=== PATIENT | male | born 1955 | race Caucasian/White ===

== ENCOUNTER 2016-09-12 10:02 | Inpatient (IN) ==
--- NOTE | 2016-09-12 10:34 | Emergency Department Note ---
Disposition Clinical Impression: Arterial insufficiency, Right foot pain Disposition: Admitted As Inpatient Condition: Good Referrals: NO,PCP [Non-Partnered Physician] - Forms: ED Satisfaction Letter Time of Disposition: 11:07 Extremity Problem HPI - General Chief complaint: ED Extremity Problem,Nontraumatic Stated complaint: Right Foot Numbness Time Seen by Provider: 09/12/16 10:12 Source: patient Mode of arrival: ambulatory Limitations: no limitations Nursing Notes Reviewed: Yes Vital Signs Reviewed: Yes - History of Present Illness HPI Narrative: Patient presents emergency room with decreased sensation and cold touch to the right lower extremity. Known vasculopath requiring an aortobifemoral bypass. Scheduled for this procedure but has been delayed secondary to poorly controlled diabetes. Patient is here today because of progression of symptoms and pain. He was seen by Dr. Diaz Pt Subjective Complaint: extremity pain Onset (ago): hour(s) Consistency: constant Injury Location: right, lower extremity Pain Scale: 0 Quality: burning Radiation: distal Improves with: nothing Worsens with: weight bearing, walking Associated symptoms: Reports: denies other symptoms Context: history of peripheral vascular disease - Related Data Allergies Allergy/AdvReac Type Severity Reaction Status Date / Time No Known Allergies Allergy Verified 06/03/16 10:49 All systems ED: reviewed and negative except as stated. Constitutional: Denies: fever, chills Cardiovascular: Denies: chest pain, palpitations, dyspnea on exertion, orthopnea Respiratory: Denies: dyspnea, wheezes Gastrointestinal: Denies: nausea, vomiting, diarrhea Musculoskeletal: Denies: back pain, neck pain Neurological: Denies: headache Past Medical History - Past Medical History Attestation: Yes The following information was validated with the patient. Source: patient Medical history: Reports: diabetes, myocardial infarction, peripheral artery disease Surgical history: Reports: LE stent(s), other (Cardiac stents) Psychiatric history: Reports: no psych history - Social History Smoking Status: Current every day smoker Smokeless Tobacco Status: No Alcohol use: Reports: none Drug use: Reports: none Physical Exam - General Limitations: no limitations General appearance: alert, in no apparent distress - Chest Chest inspection: Present: normal inspection, symmetric chest wall rise - Respiratory Respiratory exam: Present: normal lung sounds bilaterally - Cardiovascular Cardiovascular exam: Present: regular rate, normal rhythm, normal heart sounds - Extremities Exam Extremities exam: Present: normal inspection, full ROM, other (Patient has right lower extremity numbness and tingling sensation to the foot just distal to the ankle. This is a new symptom for him. There is mild discoloration and dusky appearance with cold skin to the touch in the foot and calf left extremity does not appear to be involved DP and PT pulses in the right foot are difficult to palpate). Absent: tenderness, normal capillary refill, pedal edema - Back Exam Back exam: Present: normal inspection - Neurological Exam Neurological exam: Present: alert, oriented X3 - Psychiatric Psychiatric exam: Present: other (Tearful) - Skin Skin exam: Present: warm, dry, intact, normal color, other (C extremity no) Course Course Narrative: Patient seen and examined the time of arrival here to the emergency room. See history of present illness. 60-year-old male presents with known vascular and arterial insufficiency in the lower extremities. He seen by was supposed to be doing an aortobifemoral bypass for this gentleman. They have been refraining from doing the procedure secondary to elevated glucose. Patient started to notice tingling in numbness in his right lower extremity today distal to the ankle as well as a dusky color and cold skin sensation the foot and calf. Patient has had multiple evaluations including vascular study. Patient denies any changes in symptoms or medical issues. Had labs drawn 3 days ago for evaluation and presurgical treatment. Patient had EKG completed here. Physical exam shows a slightly dusky right lower extremity was cool touch to the calf and foot. Sensation is diminished. Dorsalis pedis and posterior tibial pulses are difficult to help 8 on my examination of the right foot left foot does appear to have good pulses at this time. I reviewed the imaging studies as well as a vascular studies completed in the patient's previous evaluations in May. I placed a consult out to the operative physician and discuss the patient's medical presentation symptoms and intervention. Recommendation at this time is for him to be admitted to the hospitalist for medical management and then most likely surgical intervention. He did not request or require any further imaging studies are confirmatory testing at this point. I then placed a page out to the hospitalist and discussed and reviewed the patient's presentation with Dr. pinon. The presentation symptoms consultation with the vascular surgeon as well as the previous evaluation labs within the last 3 days. No recommendation for repeat labs at this time. Doppler study to attempt to be completed in emergency room for dopplerable pulses in the right lower extremity. Will also get an EKG. EKG collected shows normal sinus rhythm with no acute signs of ST segment elevation or pathology. Patient will be admitted to the hospitalist at this time for possible vascular surgery procedure. Vital Signs Temperature 97.7 F 09/12/16 10:07 Pulse Rate 91 09/12/16 10:07 Respiratory Rate 16 09/12/16 10:07 Blood Pressure 151/74 09/12/16 10:07 O2 Sat by Pulse Oximetry 100 09/12/16 10:07 Temperature 97.7 F 09/12/16 10:07 Pulse Rate 91 09/12/16 10:07 Respiratory Rate 16 09/12/16 10:07 Blood Pressure 151/74 09/12/16 10:07 O2 Sat by Pulse Oximetry 100 09/12/16 10:07 Oxygen Delivery Oxygen Delivery Room Air Extremity Problem, Nontraumati - MDM Narrative Medical decision making narrative: Vascular insufficiency, peripheral artery disease - Medical Records Medical records reviewed: Yes I reviewed the patient's medical records. - Lab Data Lab results reviewed: Yes I reviewed the patient's lab results. - Radiology Data Radiology results reviewed: Yes I reviewed the patient's radiology results. Previous imaging studies were reviewed
[2016-09-12] MEDS ORDERED: Ondansetron 4 MG/2 ML VIAL IVP PRN (10:40)
[2016-09-12] MEDS ORDERED: Naloxone 0.4 MG/ML INJ IVP PRN (10:40)
[2016-09-12] MEDS ORDERED: *HR* Morphine 2 MG/ML SYRINGE IVP PRN (10:40)
[2016-09-12] MEDS ORDERED: Acetaminophen 325 MG TABLET PO PRN (10:40)
[2016-09-12] MEDS ORDERED: D5% in Water 1,000 ML IVC PRN (11:05)
[2016-09-12] MEDS ORDERED: Dextrose Gel 15 GM PO PRN ×2 (11:05)
[2016-09-12] MEDS ORDERED: *HR* Dextrose 50 % in Water (Syg) 50 ML SYRINGE IVP PRN (11:05)
--- NOTE | 2016-09-12 11:47 | Internal Med History&Physical ---
Date of Encounter: 09/12/16 Time of Encounter: 11:35 Assessment and Plan (1) Peripheral vascular disease Current visit: Yes Status: Chronic Chronic progressive disease with history of one peripheral arterial stent Patient presents with right foot numbness - probable acute occlusion Vascular surgery consult - discussed with Dr. Diaz JOSUÉ and arterial Dopplers pending Patient will need aortobifemoral bypass Nothing by mouth, aspirin, statin Needs good blood glucose control (2) Arterial occlusion Current visit: Yes Status: Acute Suspected, plan as above (3) Type 2 diabetes mellitus Current visit: Yes Status: Acute Type 2, non-insulin dependent, hyperglycemia glucose checks, sliding scale insulin Continue Levemir Qualifiers: Diabetes mellitus complication status: with circulatory complication Diabetes mellitus complication detail: with peripheral angiopathy without gangrene Diabetes mellitus residential insulin use: without intermediate frame tender use Qualified Code(s): E11.51 - Type 2 diabetes mellitus with diabetic peripheral angiopathy without gangrene (4) Coronary artery disease Current visit: Yes Status: Chronic Status post stents - has not been on aspirin and statin Continue aspirin and statin Qualifiers: Coronary Disease-Associated Artery/Lesion type: [place] artery [place] vs. transplanted heart: [place] heart Associated angina: without angina Qualified Code(s): I25.10 - Atherosclerotic heart disease of [place] coronary artery without angina pectoris (5) Tobacco abuse Current visit: Yes Status: Chronic counselled about cessation, Nicotine patch (6) DVT prophylaxis Current visit: Yes Status: Acute continue heparin Internal Medicine - H&P: HPI Chief complaint: Right foot numbness Admitted From: Emergency Dept History of present illness: Mr. Leblanc is a 60 year old male with PMH of CAD, HTN, PVD and DM. He presents to the ED with complaints of right foot numbness. Patient states he has chronic right lower leg pain due to peripheral vascular disease. Today, all of a sudden his right foot is gone now. He states he cannot feel anything. Patient says he is not able to bear any weight on the right foot. No other aggravating or alleviating factors. He states he continues to smoke. He denies chest pain, denies shortness of breath denies palpitations, denies abdominal pain or fever or vomiting or diarrhea or cough. No other associated symptoms. Patient has history of cardiac stents and also wants stent in his right femoral. Patient has been scheduled for a aortobifemoral bypass, but this has been postponed or canceled in the past due to uncontrolled blood sugars. Patient was called by his vascular surgeon today that his surgery will be postponed. Patient told them about the right foot numbness, and he was then advised to go to the ED for evaluation. Patient states his son yesterday and his is scheduled tomorrow, and is not sure if he needs to stay here for surgery or attend the services. On examination patient is awake and alert. Not in any distress. Able to avoid all history. is at bedside. Patient is being admitted for severe peripheral vascular disease with probable acute occlusion. He will need evaluation for aortobifemoral surgery. He will be started on aspirin and statin and will be nothing by mouth. His blood glucose will need to be well controlled. He will be on insulin sliding scale and also on Levemir. Patient and his have been explained about his condition and plan of care. He understood and agreed. No unanswered questions. Discussed with Dr. Diaz, and he will evaluate patient. CODE STATUS full code. Past Med Surg Social Fam HX - Past Medical History Medical history: diabetes, myocardial infarction, peripheral artery disease Psychiatric history: no psych history - Past Surgical History Surgical History: LE stent(s), other (Cardiac stents) - Social History Smoking Status: Current every day smoker Smokeless Tobacco Status: No Alcohol use: none Drug use: none Internal Medicine - H&P: Meds Allergies No Known Allergies Allergy (Verified 06/03/16 10:49) All Systems PM: A 10-system review of systems was performed and is negative for pertinent findings except as documented above in the HPI. - Constitutional Constitutional: no fever(s) - EENT Eyes: no blurry vision - Cardiovascular Cardiovascular ROS IM: no chest pain, no dyspnea, no dyspnea on exertion, no lightheadedness, no orthopnea, no syncope - Respiratory Respiratory: no cough, no dyspnea, no dyspnea on exertion, no wheezing, no chest congestion - Gastrointestinal Gastrointestinal: no abdominal pain, no cramping, no diarrhea, no nausea, no vomiting - Genitourinary Genitourinary ROS male: no dysuria - Musculoskeletal Musculoskeletal ROS IM: numbness (right foot), tingling (right foot) - Neurological Neurological ROS: numbness, paresthesias, tingling, no abnormal gait, no abnormal speech, no dizziness, no focal weakness, no loss of vision - Constitutional Vitals: Temp Pulse Resp BP Pulse Ox 97.7 F 91 16 140/79 100 09/12/16 10:07 09/12/16 10:07 09/12/16 10:57 09/12/16 10:57 09/12/16 10:07 General appearance: Present: A&O X 3, no acute distress, answers questions appropriately - Head Head exam: Present: atraumatic - Eye Eye exam: Present: EOMI - Neck Neck exam general surgery: Present: supple - Respiratory Respiratory exam: Present: CTAB. Absent: rales, rhonchi, wheezes, tachypnea - Cardiovascular Cardiovascular exam: Present: RRR, +S1, +S2 - GI/Abdominal GI/Abdominal exam: Present: soft, tenderness. Absent: distended, firm, guarding , rigid - Extremities Exam Extremities exam: Present: radial pulses palpable and symetrical. Absent: cyanotic, pedal edema, tenderness Additional comments: Right foot distal pulses not palpable, medial and lateral aspects of foot are cold to touch No tenderness and capillary refill is absent Range of motion of the foot and toes normal - Neurological Exam Neurological exam: Present: alert, oriented X3, no focal deficits
[2016-09-12] MEDS: Nicotine 21 MG PATCH.TD24 TD SCH (12:45)
[2016-09-12] MEDS: Insulin LISPRO 300 UNITS/3 ML VIAL SQ SCH ×2 (12:46→21:17)
[2016-09-12] MEDS: 0.9 % Sodium Chloride 1,000 ML IVC SCH (12:46)
--- NOTE | 2016-09-12 15:01 | Vascular/Endovasc Consult Note ---
<Estefania Ackerman - Last Filed: 09/12/16 15:40> Date of Encounter: 09/12/16 Time of Encounter: 14:45 Assessment and Plan (1) Peripheral vascular disease Current Visit: Yes Status: Chronic JOSUÉ of bilateral lower extremities- RLE- 0.4, LLE- 0.1 Will need further investigation with CTA with runoff now Doppler pulses are present to bilateral DP/PT Recommend urgent surgical intervention with aortobifemoral bypass with Dr. Diaz Continue ASA - History of Present Illness Consult date: 09/12/16 Requesting physician: Royal Ghosh Consult reason: RLE severe stenosis with increase in numbness/tingling Chief complaint: RLE numbness/tingling History of present illness: Mr. Leblanc is a 60 year old male with a past medical history significant for peripheral vascular disease, diabetes mellitus, myocardial infarction 4. The patient has been seen and evaluated by Dr. Diaz as an outpatient for his peripheral vascular disease. His last JOSUÉ on his right lower extremity was 0.4 and left lower extremity was 0.8. The patient has completed his preoperative workup and was scheduled for an aortobifemoral bypass with Dr. Diaz. After receiving his laboratory studies his hemoglobin A1c was noted to be 12.7. The patient was called this morning and notified that he will need to have his surgery delayed until his blood sugars are under better control. During this conversation with office staff he reported having increasing numbness and tingling to his right lower extremity over the past 24 hours. He was advised to report to the emergency department for evaluation. Upon evaluation in the emergency department, they stated that his leg was cold and they were unable to obtain Doppler pulses. The patient was admitted to the hospitalist service and we have been asked to see and evaluate for evaluation. He states that he currently does not check his blood sugars and does not know what they run. Past Med Surg Social Fam HX - Past Medical History Source: patient, old records reviewed Medical history: diabetes, myocardial infarction (X4), peripheral artery disease Psychiatric history: no psych history - Past Surgical History Surgical History: angioplasty/stent (3 stents), LE stent(s) (RLE X 3 stents), vasectomy - Social History Smoking Status: Current every day smoker Smokeless Tobacco Status: No Alcohol use: none Drug use: none Current living situation: Home - Independent Activity Level: Independent ambulation - Family History Father Living Status: Hx Family Cardiac Disorders: Yes Mother Living Status: Still Living Hx Family Cardiac Disorders: Yes Medications and Allergies Allergies No Known Allergies Allergy (Verified 06/03/16 10:49) All Systems Review: A 10-system review of systems was performed and is negative for pertinent findings except as documented above in the HPI. Exam Vital Signs, Last 4 Hours Temp Pulse Resp BP Pulse Ox 09/12/16 12:04 98.2 F 71 14 134/75 95 General: Present: Conversant, No Apparent Distress, Well developed, Well nourished HEENT: Present: Atraumatic, Normocephaly, Trachea midline, Pupils equal Cardiac: Present: Reg Rate and Rhythm, Normal S1 and S2 Lungs: Present: Normal Breath Sounds, No Wheeze, Rales, Rhonchi Neuro: Present: Alert and responsive, No focal deficits noted Abdomen: Present: Soft, Non-tender Vascular: Present: Capillary refill delayed, Pulse, diminished (DP and PT present bilaterally with doppler), Other (LLE is warmer than RLE) Skin: Present: No rashes noted on visualized skin Consult Discharge Plan - Plan Referrals: Isa Hickman DO [Primary Care Provider] - - Attending Attestation I examined this patient and my medical decision-making was reviewed with the [employer] SAL[employer] ASSOCIATE/PA/Advanced Practice Nurse/Resident Physician. I agree with the documented findings, disposition and treatment plan as described except to the extent set forth below. <EmilyDavey T - Last Filed: 09/12/16 20:44> Date of Encounter: 09/12/16 - History of Present Illness History of present illness: Mr. Leblanc is a 60 year old male All Systems Review: A 10-system review of systems was performed and is negative for pertinent findings except as documented above in the HPI. Exam Vital Signs, Last 4 Hours Temp Pulse Resp BP Pulse Ox 09/12/16 18:43 98.4 F 82 16 128/54 96 - Attending Attestation The patient was seen and evaluated. His ankle-brachial index on the right has dropped from 0.4-0.1 in 2 months. His ankle-brachial index has dropped from 0.8 -0.4 on the left in 2 months. He now has numbness in his right foot and states that his right foot is cold. I fear that he has progressed his aorto iliac occlusive disease and has signs of aortic occlusion. We will repeat his aortogram with CTA runoff. I have recommended that we proceed with urgent aortobifemoral bypass despite his elevated hemoglobin A1c. Further delay may risk limb loss. I discussed the risks and benefits with the patient. We will proceed with aortobifemoral bypass tomorrow after the patient's glucose levels have been under control. Davey Diaz MD FACS
--- NOTE | 2016-09-12 15:55 | Electrocardiograph Report ---
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
[2016-09-12] MEDS: Aspirin 81 MG TAB.CHEW PO SCH (17:52)
[2016-09-12] MEDS: *HR* Heparin 5,000 UNIT/ML VIAL SQ SCH (17:52)
[2016-09-12] MEDS: Insulin DETEMIR 100 UNIT/ML X5UNITS SQ SCH ×2 (17:52→21:09)
[2016-09-12 19:37] LABS: BUN/Creatinine Ratio 17 (6-26); Blood Urea Nitrogen 13 mg/dL (8-26); Calcium 8.9 mg/dL (8.6-10.8); Carbon Dioxide 24 mEq/L (19-29); Chloride 105 mEq/L (98-109); Glucose 128 mg/dL (70-99); Osmolality,Calculated 288 (280-300); Potassium 3.8 mEq/L (3.5-4.5); Sodium 138 mEq/L (136-145); eGFR For African Americans > 60 (> 60); eGFR For Non-African Americans > 60 (> 60)
[2016-09-12] MEDS: Famotidine 20 MG TABLET PO SCH (21:09)
[2016-09-13] MEDS: Insulin LISPRO 300 UNITS/3 ML VIAL SQ SCH ×4 (01:16→22:36)
[2016-09-13] MEDS: *HR* Heparin 5,000 UNIT/ML VIAL SQ SCH ×2 (05:46→22:36)
--- NOTE | 2016-09-13 07:31 | Arterial Study Report ---
LE Arterial Physiologic Study Patient Name:Ruddy Leblanc Order Number:[id number] Procedure Date:09/12/2016 Date:1955ge:60 yrs Gender:Male Lt BP:122 / mmHg Rt.BP:123 / mmHgHeart Rate: Location:[facility] Room #: 3A43 Diving Judge:Piedad Brunner RDCS, RVT Referring MD:Davey Diaz MD sales operations assistant:DO Shira Velazquez MD:Kendrick Bowman MD Primary Indications:Peripheral Vascular Disease, Occlusion Risk Factors Yes/No Smoking Current Yes Hypercholesterolemia Yes Diabetes Yes Previous Vascular Surgery No Hypertension No Impressions: The right JOSUÉ and waveforms are consistent with severe disease. Right JOSUÉ 0.10. The left JOSUÉ and waveforms are consistent with severe disease. Left JOSUÉ 0.43. Recommendations: Further evaluation is recommended. After imaging the patient returned to their room. Test completed on 09/12/2016 at 3:49:48 pm. Critical findings reported to Dr. Diaz by phone at 3:49:59 pm on 09/12/2016 by Piedad Brunner RDCS, RVT. Findings LE Arterial Physiologic Exam: PVR: Right: The PVR waveforms are severely diminished in the right ankle. Left: The PVR waveforms are moderately diminished in the left ankle. Segmental Pressures Side Location Pressure Index Result Right Posterior Tibial 12 0.10 Severely Diminished Right Dorsalis Pedis 0 Left Posterior Tibial 48 0.39 Moderately Diminished Left Dorsalis Pedis 53 0.43 Moderately Diminished Ankle Brachial Index Right Systolic Diastolic JOSUÉ Brachial 123 0.10 Dorsalis Pedis 0 Posterior Tibial 12 0.10 Left Systolic Diastolic JOSUÉ Brachial 122 0.43 Dorsalis Pedis 53 0.43 Posterior Tibial 48 0.39 Updated by Kendrick Bowman MD on 09/13/2016 7:25:05 AM with Status of Final electronically signed on 09/13/2016 7:25:21 AM with status of Final
[2016-09-13] MEDS: Famotidine 20 MG TABLET PO SCH ×2 (08:02→22:36)
[2016-09-13] MEDS: Aspirin 81 MG TAB.CHEW PO SCH (08:02)
--- NOTE | 2016-09-13 08:37 | Internal Med Progress Note ---
Date of Encounter: 09/13/16 Time of Encounter: 08:33 - Assessment and plan (1) Arterial occlusion Current Visit: Yes Status: Acute Assessment and plan: Severe right common iliac artery occlusion Management per surgery, scheduled to have urgent surgery later today/ aortobifemoral bypass with Dr. Diaz Currently on aspirin and Lipitor Consider heparin drip if worse CT scan shows complete occlusion of the right common iliac artery near the junction with the common femoral artery, focal high-grade greater than 75% stenosis of the origin of the left external iliac artery. Bilateral below the knee vessels are grossly patent. (2) Arterial insufficiency Current Visit: Yes Status: Acute Assessment and plan: As stated above (3) Coronary artery disease Current Visit: Yes Status: Chronic Assessment and plan: Continue aspirin and Lipitor Qualifiers: Coronary Disease-Associated Artery/Lesion type: [place] artery [place] vs. transplanted heart: [place] heart Associated angina: without angina Qualified Code(s): I25.10 - Atherosclerotic heart disease of [place] coronary artery without angina pectoris (4) Peripheral vascular disease Current Visit: Yes Status: Chronic (5) Tobacco abuse Current Visit: Yes Status: Chronic Assessment and plan: Smoking cessation counseling given for 5 minutes. Continue nicotine patch (6) Type 2 diabetes mellitus Current Visit: Yes Status: Acute Assessment and plan: Continue insulin sliding scale Qualifiers: Diabetes mellitus complication status: with circulatory complication Diabetes mellitus complication detail: with peripheral angiopathy without gangrene Diabetes mellitus halfway insulin use: without intermodal truck driver use Qualified Code(s): E11.51 - Type 2 diabetes mellitus with diabetic peripheral angiopathy without gangrene - Subjective Interval history: Complaints of numbness of the right foot, denies any pain, no abdominal pain, no dysuria, no diarrhea, no chest pain or shortness of breath - Constitutional Vitals: Temp Pulse Resp BP Pulse Ox 97.7 F 70 16 109/64 98 09/13/16 07:04 09/13/16 07:04 09/13/16 07:04 09/13/16 07:04 09/13/16 07:04 General appearance: Present: A&O X 3, no acute distress, answers questions appropriately - Head Head exam: Present: atraumatic, normocephalic - Eye Eye exam: Present: PERRL, conjuntiva pink, sclera anicteric Pupils: Present: PERRL - Neck Neck exam general surgery: Present: supple, trachea midline. Absent: lymphadenopathy - Respiratory Respiratory exam: Present: CTAB. Absent: accessory muscle use, rales, rhonchi, wheezes - Cardiovascular Cardiovascular exam: Present: RRR, +S1, +S2. Absent: diastolic murmur, gallop, rubs, systolic murmur - GI/Abdominal GI/Abdominal exam: Present: normal bowel sounds, soft, no peritoneal signs. Absent: distended, tenderness - Extremities Exam Extremities exam: Present: warm, radial pulses palpable and symetrical. Absent : calf tenderness, cyanotic, pedal edema - Neurological Exam Neurological exam: Present: CN II-XII intact, oriented X3, no focal deficits. Absent: pronater drift, facial droop, speech deficit - Skin Skin exam: Present: dry. Absent: intact (Absent pulses worsened her right foot , extremity feels cold but he is able to move it, numbness below the right knee) Internal Medicine: Result - Labs CBC & Chem 7: 09/12/16 19:18 Labs: BMP 09/12/16 19:18 Sodium 138 Potassium 3.8 Chloride 105 Carbon Dioxide 24 BUN 13 Creatinine 0.77 Glucose 128 H Calcium 8.9 - Impressions Impressions Aorta w/Runoff CTA 09/12/16 15:54 IMPRESSION: 1. Redemonstration of complete occlusion of the right common iliac artery beginning at the origin with reconstitution of flow in the distal aspect of the right external iliac artery near the junction with the common femoral artery. Previously, there was reconstitution of flow within the proximal portion of the right external iliac artery. 2. Focal high-grade, greater than 75%, stenosis of the origin of the left external iliac artery, stable. 3. Bilateral [id number] runoff vessels are grossly patent, though the distal aspects of the right peroneal artery are not well visualized. D/ / 09/12/2016 22:20:22 Leandro Marmolejo MD / Trena Beltrán Interpreting Provider: Leandro Marmolejo MD Consult Discharge Plan - Plan Referrals: Isa Hickman DO [Primary Care Provider] -
[2016-09-13] MEDS: Insulin DETEMIR 100 UNIT/ML X5UNITS SQ SCH ×2 (08:40→22:36)
[2016-09-13] MEDS: Nicotine 21 MG PATCH.TD24 TD SCH (09:12)
[2016-09-13] MEDS: 0.9 % Sodium Chloride 1,000 ML IVC SCH ×2 (09:15→22:51)
--- NOTE | 2016-09-13 15:33 | Anesthesia Evaluation PreOp ---
Date of Encounter: 09/13/16 Time of Encounter: 15:30 - Past History Planned Operation: Ao bifem Cardiac History: NH (x4), Cardiac Stent (x3), Other (nuc stress 06/24: neg isch/ inf, ef 70. 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: Denies Any Significant HX Other Medical History: Diabetes Type II Anesthesia History: No Prior Anesthetic Complications, Past Anesthesia (vasect) Alcohol Use: none Drug use: none Medications and Allergies No Known Home Drugs 09/12/16 [History] Allergies No Known Allergies Allergy (Verified 06/03/16 10:49) - Meds/Allergy Pre-op Review Medications Reviewed: Yes Allergies Reviewed: Yes Beta Blockers on Current Med List: No Anesthesia Results - Labs 09/12/16 19:18 Laboratory Tests 09/09/16 09/09/16 09:38 09:38 Hgb 16.4 Hct 46.1 Plt Count 225 PT 10.2 INR 1.0 APTT 29.9 - Imaging EKG: report reviewed (sr) Anesthesia Exam Height: 1.6 Weight: 57 NPO (# of Hours): >8 - HEENT Pupil (Motor): Pupils equal, EOMI Mallampati: II Teeth: Poor dentition Oral Opening: Greater than 3 - 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
[2016-09-13] MEDS ORDERED: Dexamethasone 4 MG/ML VIAL ONE ×2 (16:05→19:54)
[2016-09-13] MEDS ORDERED: Ondansetron 4 MG/2 ML VIAL ONE ×2 (16:05→19:54)
[2016-09-13] MEDS ORDERED: *HR* FentaNYL (PF) 100 MCG/2 ML VIAL ONE ×3 (16:05→18:08)
[2016-09-13] MEDS ORDERED: Lidocaine -MPF 2% 2 ML VIAL ONE ×2 (16:05→16:14)
[2016-09-13] MEDS ORDERED: *HR* Rocuronium Bromide 50 MG/5 ML VIAL ONE (16:05)
[2016-09-13] MEDS ORDERED: Neostigmine Methylsulfate 3 MG/3 ML SYRINGE ONE ×2 (16:05→19:54)
[2016-09-13] MEDS ORDERED: *HR* Midazolam HCl 2 MG/2 ML VIAL ONE (16:06)
[2016-09-13] MEDS ORDERED: *HR* Propofol 200 MG/20 ML VIAL IVP ONE (16:07)
[2016-09-13] MEDS ORDERED: *HR* Succinylcholine 200 MG/10 ML VIAL IVP ONE (16:08)
[2016-09-13] MEDS ORDERED: Heparin 1,000 UNITS/500 mL NS 500 ML ONE ×2 (16:25→16:30)
[2016-09-13] MEDS ORDERED: *HR* Dextrose 50 % in Water (Syg) 50 ML SYRINGE ONE (16:47)
[2016-09-13] MEDS ORDERED: *HR* Promethazine 25 MG/ML VIAL IVP PRN (17:33)
[2016-09-13] MEDS ORDERED: Dexamethasone 4 MG/ML VIAL IVP ONE (17:33)
[2016-09-13] MEDS ORDERED: Ringers Solution, Lactated 1,000 ML IVC SCH (17:45)
[2016-09-13] MEDS ORDERED: *HR* HYDROmorphone 2 MG/ML SYRINGE ONE (18:12)
[2016-09-13] MEDS ORDERED: *HR* Heparin 5,000 UNIT/ML VIAL ONE ×2 (18:36→19:31)
[2016-09-13] MEDS ORDERED: Ondansetron 4 MG/2 ML VIAL IVP PRN ×2 (20:20→23:49)
[2016-09-13] MEDS ORDERED: *HR* HYDROmorphone (PF) 1 MG/ML SYRINGE IVP PRN (20:20)
[2016-09-13] MEDS ORDERED: Naloxone 0.4 MG/ML INJ IVP PRN ×3 (20:20→23:49)
[2016-09-13] MEDS ORDERED: 0.9 % Sodium Chloride 1,000 ML IVC SCH (20:30)
--- NOTE | 2016-09-13 20:34 | Operative Note ---
Date of procedure: 09/13/16 Pre-op diagnosis: Aortoiliac occlusive disease Post-op diagnosis: same Procedure: Aortobifemoral bypass Implants: 14 x 7 mm Hemashield bifurcated Anesthesia: NICHOLE Surgeon: Davey Diaz Estimated blood loss (cc): 250 Specimen: Aortic thromboendarterectomy Condition: stable Disposition: PACU Procedure in Detail: After informed consent the patient was taken to the major suite placed in supine position and given adequate general anesthetic. The abdomen and both groins were prepped and draped in sterile fashion utilizing Betadine solution standard draping techniques. Timeout was taken patient was identified. I started in the left groin with an oblique incision I dissected down the level of the common femoral artery there was a low bifurcation. I surrounded the superficial femoral profunda femoris and common femoral artery. I made an initial dissection under the inguinal ligament along the anterior surface of the external iliac artery. All vessels were surrounded with vessel loops the wound was packed with antibiotic containing solution. Attention was then turned to the right groin I then made an oblique incision and dissected down to the femoral artery. The common femoral artery was pulseless very strong the common femoral to branches of a bifurcated profunda and the superficial femoral artery with vessel loops. Again there was a low bifurcation. I made an initial dissection along the anterior border of the external iliac artery underneath the inguinal ligament. The right groin was packed in antibiotic solution. Attention was turned to the abdomen. The main midline incision. I placed a Bookwalter retractor as is my usual technique. I opened the retroperitoneum and exposed the aorta from the renal vein to the aortic bifurcation. I preserved the plexus of nerves at the aortic bifurcation. I circumferentially dissected the aorta between the renal vein and the inferior mesenteric artery. I then made a tunnel sweeping the ureters anteriorly off the external and common iliac arteries on both sides. I connected the tunnels and placed vessel loops. Once this was then patient was heparinized 5000 heparin. After 3 minutes I clamped the proximal aorta with a Satinsky clamp. I stapled the aorta just proximal to the inferior mesenteric artery. The aorta was divided at this level. The aorta was 80% full of thrombus and plaque. This was removed. I opened the Satinsky clamp and flushed the plug out below the renal arteries. This gave an excellent technical result. I have previously selected a 14 x 7 Hemashield bifurcated graft. Proximal anastomosis was carried out using 2.8 magnification. 3-0 Prolene was used. This gave an excellent technical result. I tested the anastomosis. There was one small leak on the left upper side and this was easily controlled with pledgete. The anastomosis was now intact. I then tunneled the right limb of the graft. The common femoral artery was opened on the right and extended into the right superficial femoral artery area the vessel was amenable to bypass. I created a cobra adamson of appropriate length on the 7 mm graft. 2.8 magnification and 5-0 Prolene was used to create the anastomosis. Prior to completion the aortic graft was forward flushed and the femoral vessels were back flushed. I opened first to the iliac then to the profunda and finally into the superficial femoral artery. Pulsatile flow was excellent. Attention was then turned to the left groin. I tunneled the left limb of the graft behind the ureter in the previously dissected space. Again he common femoral artery was opened and extended into the superficial femoral artery. I cut a cobra adamson into the left limb of the graft of appropriate size. Using 5-0 Prolene I created a anastomosis using 2.8 magnification. This gave an excellent technical result. Before closure I forward flushed the graft from the aorta and back bled the femoral vessels. I then opened the anastomosis first to the iliac then performed and final to the superficial femoral artery. Pulsatile flow was excellent. There was no bleeding at any suture line. Total blood loss 250 mL or less. The retroperitoneum was then closed with a running 0 Vicryl. The abdomen was closed with looped 0 PDS and interrupted 2-0 Vicryl as well as skin clips. Both groins were closed in 3 layers of interrupted Vicryl and one layer of skin álvaro. This gave an excellent technical result and he was transferred to recovery in stable condition
[2016-09-13] MEDS ORDERED: *HR* HYDROmorphone (PF) 1 MG/ML SYRINGE ONE (20:49)
[2016-09-13] MEDS: *HR* HYDROmorphone (PF) 1 MG/ML SYRINGE IVP PRN ×4 (20:50→21:45)
[2016-09-13] MEDS ORDERED: *HR* Meperidine 25 MG/ML SYRINGE ONE (21:01)
[2016-09-13] MEDS ORDERED: *HR* Labetalol 20 MG/4 ML SYRINGE IVP ONE (21:08)
[2016-09-13] MEDS: *HR* Labetalol 20 MG/4 ML SYRINGE IVP PRN ×2 (21:13→21:25)
--- NOTE | 2016-09-13 22:44 | Anesthesia Evaluation Post Op ---
Date of Encounter: 09/13/16 Time of Encounter: 22:43 - Vital Signs Vital Signs: Vital Signs/O2 Sat/Glucose, Most Recent Temp Pulse Resp BP Pulse Ox 98.3 F 71 17 149/72 97 09/13/16 22:30 09/13/16 22:30 09/13/16 22:30 09/13/16 22:30 09/13/16 22:30 Blood Glucose* 155 - Lungs Lungs: Clear Ascult./Percussion - Airway Airway: Non-obstructed - Cardiovascular Regular Rate - Mental Status Mental Status: Asleep with brisk response to light stimulation - Pain Pain Scale: 6 Pain Scale used: Numeric (1 - 10) - Nausea Vomiting Nausea Vomiting: Not Present - Hydration Hydration: NPO, Dyson catheter
[2016-09-14] MEDS ORDERED: *HR* Metoprolol 5 MG/5 ML VIAL IVP SCH
[2016-09-14] MEDS: ceFAZolin 2,000 MG in D5% in Water 100 ML IVPB SCH ×2 (00:04→08:11)
[2016-09-14] MEDS: Insulin LISPRO 300 UNITS/3 ML VIAL SQ SCH ×4 (00:05→17:45)
[2016-09-14] MEDS: *HR* HYDROmorphone (PF) 1 MG/ML SYRINGE IVP PRN ×8 (00:05→21:45)
[2016-09-14] MEDS: *HR* Metoprolol 5 MG/5 ML VIAL IVP SCH ×4 (00:05→17:45)
[2016-09-14] MEDS: 0.9 % Sodium Chloride 1,000 ML IVC SCH ×3 (03:16→22:52)
[2016-09-14 04:04] LABS: Basophils % 0.3 %; Eosinophils % 0.1 %; Hematocrit 39.8 % (37.5-50.1); Immature Granulocytes % 0.3 % (0-4); Lymphocytes # 0.9 K/mcL (0.6-4.6); Lymphocytes % 7.3 %; Mean Corpuscular HGB Conc 34.2 g/dL (31.6-35.5); Mean Corpuscular Volume 90.7 fL (83.0-100.0); Mean Platelet Volume 10.1 fL (9.4-12.4); Monocytes # 0.9 K/mcL (0.0-1.3); Monocytes % 7.4 %; Platelet Count 132 K/mcL (140-400); Red Blood Count 4.39 M/mcL (4.19-5.50); Red Cell Distribution Width 12.9 % (11.5-14.5); Segmented Neutrophils % 84.6 %
[2016-09-14 04:07] LABS: Hemoglobin 13.6 g/dL (12.9-16.9)
[2016-09-14 04:18] LABS: BUN/Creatinine Ratio 20 (6-26); Blood Urea Nitrogen 17 mg/dL (8-26); Calcium 8.3 mg/dL (8.6-10.8); Carbon Dioxide 24 mEq/L (19-29); Chloride 110 mEq/L (98-109); Glucose 142 mg/dL (70-99); Osmolality,Calculated 292 (280-300); Potassium 4.4 mEq/L (3.5-4.5); Sodium 139 mEq/L (136-145); eGFR For African Americans > 60 (> 60); eGFR For Non-African Americans > 60 (> 60)
[2016-09-14] MEDS: *HR* Heparin 5,000 UNIT/ML VIAL SQ SCH ×2 (05:41→17:41)
[2016-09-14] MEDS: Nicotine 21 MG PATCH.TD24 TD SCH (07:55)
--- NOTE | 2016-09-14 15:00 | Vascular/[facility]as Progress Note ---
Date of Encounter: 09/14/16 Time of Encounter: 12:10 - Assessment and plan (1) Arterial insufficiency Current Visit: Yes Status: Chronic The patient is postoperative day #1 after an aortobifemoral bypass. He is hemodynamically stable. He has no evidence of bleeding. His feet are warm and his compartments are soft. He will continue with intravenous fluids. He will be out of bed today. PT/OT consult. His kim catheter will be discontinued. He will remain NPO. Repeat labs in am. - Subjective Interval history: The patient is postoperative day #1 after an aortobifemoral bypass graft. The patient reports adequate pain control. He denies nausea. He denies flatus. He denies chest pain or shortness of breath. Vital Signs, Last 4 Hours Temp Pulse Resp BP Pulse Ox 09/14/16 13:50 84 137/70 94 09/14/16 12:23 98.8 F 99 20 161/78 94 - Physical Examination General: Present: Conversant, No Apparent Distress HEENT: Present: Atraumatic, Pupils equal Neck: Absent: JVD Cardiac: Present: Reg Rate and Rhythm, Normal S1 and S2 Lungs: Present: Normal Breath Sounds, No Wheeze, Rales, Rhonchi Neuro: Present: Alert and responsive, No focal deficits noted Vascular: Present: Normal capillary refill, Pulse, normal, Surgical incisions ( bandages dry, no hematoma). Absent: Cyanosis, Edema Abdomen: Present: Soft, Other (incisional tenderness, non distended, few bowel sounds) Skin: Present: No rashes noted on visualized skin - VTE Documentation of Mechanical Device: Intermittent pneumatic compression device Results 09/14/16 03:39 09/14/16 03:39 Lab Results, Last 24 hours 09/14/16 09/14/16 03:39 03:39 WBC 11.8 H D Hgb 13.6 D Hct 39.8 Plt Count 132 L Sodium 139 Potassium 4.4 Chloride 110 H Carbon Dioxide 24 BUN 17 Creatinine 0.85 Glucose 142 H Calcium 8.3 L Consult Discharge Plan - Plan Referrals: Isa Hickman DO [Primary Care Provider] -
--- NOTE | 2016-09-14 15:32 | Internal Med Progress Note ---
Date of Encounter: 09/14/16 Time of Encounter: 15:32 - Assessment and plan (1) Arterial occlusion Current Visit: Yes Status: Acute Assessment and plan: Severe right common iliac artery occlusion status post/aortobifemoral bypass by Dr. Diaz on 09/13/2016 Management per vascular surgery Continue IV fluids Keep nothing by mouth Consider starting aspirin and Plavix Currently Lipitor CT scan showed complete occlusion of the right common iliac artery near the junction with the common femoral artery, focal high-grade greater than 75% stenosis of the origin of the left external iliac artery. Bilateral below the knee vessels are grossly patent. (2) Arterial insufficiency Current Visit: Yes Status: Chronic Assessment and plan: As stated above (3) Coronary artery disease Current Visit: Yes Status: Chronic Assessment and plan: Continue Lipitor Qualifiers: Coronary Disease-Associated Artery/Lesion type: [place] artery [place] vs. transplanted heart: [place] heart Associated angina: without angina Qualified Code(s): I25.10 - Atherosclerotic heart disease of [place] coronary artery without angina pectoris (4) Peripheral vascular disease Current Visit: Yes Status: Chronic (5) Tobacco abuse Current Visit: Yes Status: Chronic Assessment and plan: Smoking cessation counseling given for 5 minutes. 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 insulin use: without shelter use Qualified Code(s): E11.51 - Type 2 diabetes mellitus with diabetic peripheral angiopathy without gangrene - Subjective Interval history: Has mild pain over the abdominal area(surgical area, 06/17) Denies any numbness of the right foot, denies any pain, no abdominal pain, no dysuria, no diarrhea, no chest pain or shortness of breath - Constitutional Vitals: Temp Pulse Resp BP Pulse Ox 98.8 F 84 20 137/70 94 09/14/16 12:23 09/14/16 13:50 09/14/16 12:23 09/14/16 13:50 09/14/16 13:50 General appearance: Present: A&O X 3, no acute distress, answers questions appropriately - Head Head exam: Present: atraumatic, normocephalic - Eye Eye exam: Present: PERRL, conjuntiva pink, sclera anicteric Pupils: Present: PERRL - Neck Neck exam general surgery: Present: supple, trachea midline. Absent: lymphadenopathy - Respiratory Respiratory exam: Present: CTAB. Absent: accessory muscle use, rales, rhonchi, wheezes - Cardiovascular Cardiovascular exam: Present: RRR, +S1, +S2. Absent: diastolic murmur, gallop, rubs, systolic murmur - GI/Abdominal GI/Abdominal exam: Present: normal bowel sounds, soft, no peritoneal signs. Absent: distended, tenderness Additional comments: Large surgical wound covered by dressing lower abdomen, no hematomas - Extremities Exam Extremities exam: Present: warm, radial pulses palpable and symetrical. Absent : calf tenderness, cyanotic, pedal edema - Neurological Exam Neurological exam: Present: CN II-XII intact, oriented X3, no focal deficits. Absent: pronater drift, facial droop, speech deficit - Skin Skin exam: Present: dry, intact Additional comments: Pulses are faint in both lower extremities but both legs are warm Internal Medicine: Result - Labs CBC & Chem 7: 09/14/16 03:39 09/14/16 03:39 Labs: Short CBC 09/14/16 Range/Units 03:39 WBC 11.8 H D (4.3-11.1) K/mcL Hgb 13.6 D (12.9-16.9) g/dL Hct 39.8 (37.5-50.1) % Plt Count 132 L (140-400) K/mcL Neutrophils # 10.0 H (1.6-8.9) K/mcL BMP 09/14/16 03:39 Sodium 139 Potassium 4.4 Chloride 110 H Carbon Dioxide 24 BUN 17 Creatinine 0.85 Glucose 142 H Calcium 8.3 L - Impressions Impressions Fluoroscopy 09/13/16 00:00 IMPRESSION: Intraprocedural fluoroscopic spot images as above. See separate procedure report for more information. D/ / Laci Painter MD / Laci Painter MD Interpreting Provider: Laci Painter MD - VTE Documentation of Mechanical Device: Intermittent pneumatic compression device Consult Discharge Plan - Plan Referrals: Isa Hickman DO [Primary Care Provider] -
[2016-09-15] MEDS: *HR* Metoprolol 5 MG/5 ML VIAL IVP SCH ×4 (00:22→17:41)
[2016-09-15] MEDS: *HR* HYDROmorphone (PF) 1 MG/ML SYRINGE IVP PRN ×6 (00:22→22:29)
[2016-09-15] MEDS: Insulin LISPRO 300 UNITS/3 ML VIAL SQ SCH ×4 (00:23→17:58)
[2016-09-15 01:24] LABS: Basophils % 0.2 %; Eosinophils # 0.1 K/mcL (0.0-0.6); Eosinophils % 0.6 %; Hematocrit 35.5 % (37.5-50.1); Hemoglobin 12.4 g/dL (12.9-16.9); Immature Granulocytes % 0.3 % (0-4); Lymphocytes # 1.5 K/mcL (0.6-4.6); Lymphocytes % 14.2 %; Mean Corpuscular HGB Conc 34.9 g/dL (31.6-35.5); Mean Corpuscular Hemoglobin 31.6 pg (28.0-33.3); Mean Corpuscular Volume 90.3 fL (83.0-100.0); Monocytes % 9.2 %; Neutrophils # 7.8 K/mcL (1.6-8.9); Platelet Count 134 K/mcL (140-400); Red Blood Count 3.93 M/mcL (4.19-5.50); Red Cell Distribution Width 12.9 % (11.5-14.5); Segmented Neutrophils % 75.5 %
[2016-09-15 01:34] LABS: BUN/Creatinine Ratio 20 (6-26); Blood Urea Nitrogen 15 mg/dL (8-26); Calcium 8.1 mg/dL (8.6-10.8); Carbon Dioxide 23 mEq/L (19-29); Chloride 108 mEq/L (98-109); Glucose 156 mg/dL (70-99); Osmolality,Calculated 288 (280-300); Potassium 4.1 mEq/L (3.5-4.5); Sodium 137 mEq/L (136-145); eGFR For African Americans > 60 (> 60); eGFR For Non-African Americans > 60 (> 60)
[2016-09-15] MEDS: *HR* Heparin 5,000 UNIT/ML VIAL SQ SCH ×2 (06:57→17:41)
[2016-09-15] MEDS: Nicotine 21 MG PATCH.TD24 TD SCH (09:12)
[2016-09-15] MEDS: 0.9 % Sodium Chloride 1,000 ML IVC SCH (12:18)
--- NOTE | 2016-09-15 14:36 | Internal Med Progress Note ---
Date of Encounter: 09/15/16 Time of Encounter: 14:35 - Assessment and plan (1) Arterial occlusion Current Visit: Yes Status: Acute Assessment and plan: Severe right common iliac artery occlusion status post/aortobifemoral bypass by Dr. Diaz on 09/13/2016 Management per vascular surgery Continue IV fluids Keep nothing by mouth Start aspirin Currently on Lipitor CT scan showed complete occlusion of the right common iliac artery near the junction with the common femoral artery, focal high-grade greater than 75% stenosis of the origin of the left external iliac artery. Bilateral below the knee vessels are grossly patent. (2) Arterial insufficiency Current Visit: Yes Status: Chronic Assessment and plan: As stated above (3) Coronary artery disease Current Visit: Yes Status: Chronic Assessment and plan: Continue Lipitor Qualifiers: Coronary Disease-Associated Artery/Lesion type: [place] artery [place] vs. transplanted heart: [place] heart Associated angina: without angina Qualified Code(s): I25.10 - Atherosclerotic heart disease of [place] coronary artery without angina pectoris (4) Peripheral vascular disease Current Visit: Yes Status: Chronic (5) Tobacco abuse Current Visit: Yes Status: Chronic Assessment and plan: Smoking cessation counseling given for 5 minutes. 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 insulin use: without supervisor intermediates use Qualified Code(s): E11.51 - Type 2 diabetes mellitus with diabetic peripheral angiopathy without gangrene - Subjective Interval history: Has mild pain over the abdominal area(surgical area, 04/19) Denies any numbness of the right foot, denies any pain, no abdominal pain, no dysuria, no diarrhea, no chest pain or shortness of breath - Constitutional Vitals: Temp Pulse Resp BP Pulse Ox 98.1 F 88 18 127/68 94 09/15/16 11:23 09/15/16 11:23 09/15/16 11:23 09/15/16 11:23 09/15/16 11:23 General appearance: Present: A&O X 3, no acute distress, answers questions appropriately Exam: Head Head exam: Present: atraumatic, normocephalic - Eye Eye exam: Present: PERRL, conjuntiva pink, sclera anicteric Pupils: Present: PERRL - Neck Neck exam general surgery: Present: supple, trachea midline. Absent: lymphadenopathy - Respiratory Respiratory exam: Present: CTAB. Absent: accessory muscle use, rales, rhonchi, wheezes - Cardiovascular Cardiovascular exam: Present: RRR, +S1, +S2. Absent: diastolic murmur, gallop, rubs, systolic murmur - GI/Abdominal GI/Abdominal exam: Present: normal bowel sounds, soft, no peritoneal signs. Absent: distended, tenderness Additional comments: Large surgical wound covered by dressing lower abdomen, no hematomas - Extremities Exam Extremities exam: Present: warm, radial pulses palpable and symetrical. Absent : calf tenderness, cyanotic, pedal edema - Neurological Exam Neurological exam: Present: CN II-XII intact, oriented X3, no focal deficits. Absent: pronater drift, facial droop, speech deficit - Skin Skin exam: Present: dry, intact Internal Medicine: Result - Labs CBC & Chem 7: 09/15/16 01:05 09/15/16 01:05 Labs: Short CBC 09/15/16 Range/Units 01:05 WBC 10.3 (4.3-11.1) K/mcL Hgb 12.4 L (12.9-16.9) g/dL Hct 35.5 L (37.5-50.1) % Plt Count 134 L (140-400) K/mcL Neutrophils # 7.8 (1.6-8.9) K/mcL BMP 09/15/16 01:05 Sodium 137 Potassium 4.1 Chloride 108 Carbon Dioxide 23 BUN 15 Creatinine 0.74 Glucose 156 H Calcium 8.1 L - VTE Documentation of Mechanical Device: Intermittent pneumatic compression device Consult Discharge Plan - Plan Referrals: Isa Hickman DO [Primary Care Provider] -
--- NOTE | 2016-09-15 15:08 | Vascular/End[facility]as Progress Note ---
Date of Encounter: 09/15/16 Time of Encounter: 14:15 - Assessment and plan (1) Arterial insufficiency Current Visit: Yes Status: Chronic The patient is postoperative day #2 after an aortobifemoral bypass. He is hemodynamically stable without evidence of ongoing blood loss. He has acute expected postoperative blood loss anemia. He has no flatus or BM. Will continue NPO with IV fluids. Will provide a suppository today. His feet are warm and his compartments are soft. - Subjective Interval history: The patient is postoperative day #2 after an aortobifemoral bypass graft. He continues to report adequate pain control. He has ambulated. He denies flatus or BM. He denies chest pain or shortness of breath. Vital Signs, Last 4 Hours Temp Pulse Resp BP Pulse Ox 09/15/16 11:23 98.1 F 88 18 127/68 94 - Physical Examination General: Present: Conversant, No Apparent Distress Cardiac: Present: Reg Rate and Rhythm Lungs: Present: Normal Breath Sounds Neuro: Present: Alert and responsive, No focal deficits noted Vascular: Present: Normal capillary refill, Surgical incisions (incisions clean , dry and intact without erythema or drainage) Abdomen: Present: Soft Skin: Present: No rashes noted on visualized skin - VTE Documentation of Mechanical Device: Intermittent pneumatic compression device Results 09/15/16 01:05 09/15/16 01:05 Lab Results, Last 24 hours 09/15/16 09/15/16 01:05 01:05 WBC 10.3 Hgb 12.4 L Hct 35.5 L Plt Count 134 L Sodium 137 Potassium 4.1 Chloride 108 Carbon Dioxide 23 BUN 15 Creatinine 0.74 Glucose 156 H Calcium 8.1 L Consult Discharge Plan - Plan Referrals: Isa Hickman DO [Primary Care Provider] -
[2016-09-15] MEDS ORDERED: Bisacodyl 10 MG RECTAL SUPPOSITORY RC ONE (15:11)
[2016-09-16] MEDS: Insulin LISPRO 300 UNITS/3 ML VIAL SQ SCH ×4 (00:18→18:03)
[2016-09-16] MEDS: *HR* Metoprolol 5 MG/5 ML VIAL IVP SCH ×4 (00:19→18:03)
[2016-09-16] MEDS: 0.9 % Sodium Chloride 1,000 ML IVC SCH ×2 (00:23→11:55)
[2016-09-16 04:54] LABS: Hematocrit 34.3 % (37.5-50.1); Hemoglobin 11.9 g/dL (12.9-16.9); Mean Corpuscular HGB Conc 34.7 g/dL (31.6-35.5); Mean Corpuscular Hemoglobin 31.4 pg (28.0-33.3); Mean Corpuscular Volume 90.5 fL (83.0-100.0); Mean Platelet Volume 10.6 fL (9.4-12.4); Platelet Count 146 K/mcL (140-400); Red Blood Count 3.79 M/mcL (4.19-5.50); Red Cell Distribution Width 12.6 % (11.5-14.5)
[2016-09-16 05:10] LABS: BUN/Creatinine Ratio 22 (6-26); Blood Urea Nitrogen 15 mg/dL (8-26); Calcium 8.4 mg/dL (8.6-10.8); Carbon Dioxide 18 mEq/L (19-29); Chloride 109 mEq/L (98-109); Glucose 140 mg/dL (70-99); Osmolality,Calculated 291 (280-300); Potassium 3.7 mEq/L (3.5-4.5); Sodium 139 mEq/L (136-145); eGFR For African Americans > 60 (> 60); eGFR For Non-African Americans > 60 (> 60)
[2016-09-16] MEDS: *HR* Heparin 5,000 UNIT/ML VIAL SQ SCH ×2 (05:51→18:03)
[2016-09-16] MEDS: *HR* HYDROmorphone (PF) 1 MG/ML SYRINGE IVP PRN (05:57)
[2016-09-16] MEDS: Aspirin Enteric Coated 81 MG Tablet PO SCH (07:56)
[2016-09-16] MEDS: Nicotine 21 MG PATCH.TD24 TD SCH (07:56)
--- NOTE | 2016-09-16 09:02 | General Surgery Progress Note ---
<Watson Jordan - Last Filed: 09/16/16 08:59> Date of Encounter: 09/16/16 Time of Encounter: 09:00 - Assessment and Plan (1) Arterial insufficiency Current Visit: Yes Status: Chronic POD# 3 s/p right aortobifemoral bypass. VSS Advancing diet today to clears. sips only Heparin and ASA IVF Encouraged ambulation BM noted No nausea Pain is well controlled Distal pulses intact bilateral Vascular following Discharge planning - likely tomorrow pending toleration of advancing diet Subjective Patient reports: feels better, pain is less, flatus, bowel movement, afebrile Objective Vital Signs - Last 8 Hours Temp Pulse Resp BP Pulse Ox 09/16/16 05:38 98.2 F 84 18 138/89 96 Intake and Output 09/15/16 09/16/16 09/16/16 23:59 07:59 15:59 Intake Total 30 / 30 1000 / 1000 Output Total 500 / 500 380 / 380 Balance -470 / -470 620 / 620 Intake: IV Fluids 1000 / 1000 0.9 % Sodium Chloride 1, 1000 / 1000 000 ML @ 75 mls/hr IVC . [id number] [facility] Rx#: [id number] Oral 30 / 30 Output: Urine 500 / 500 380 / 380 Other: Meal Dinner Percent of Meal Consumed 0% Stool Size Small Stool Consistency liquid Stool Characteristics Mucoid Stool Color Brown Blood Glucose* 129 142 - General physical appearance well developed, well nourished, no distress - Eyes normal ocular movement - ENT normal mucosa - Neck Neck exam: trachea midline - Respiratory normal respiratory effort, clear to auscultation - Cardiovascular Cardiovascular exam: Present: RRR - Abdomen Abdomen: Present: bowel sounds present, soft, non tender - Incision Incision: Present: clean and dry (álvaro present without dehiscence. no erythema or drainage), intact - Neurologic CN 2-12 grossly intact - Psychiatric oriented to time, oriented to person, oriented to place, speech is normal, memory intact - Labs 09/16/16 04:04 09/16/16 04:04 Diabetes panel 09/16/16 Range/Units 04:04 Sodium 139 (136-145) mEq/L Potassium 3.7 (3.5-4.5) mEq/L Chloride 109 (98-109) mEq/L Carbon Dioxide 18 L (19-29) mEq/L BUN 15 (8-26) mg/dL Creatinine 0.67 L (0.72-1.25) mg/dL Glucose 140 H (70-99) mg/dL Calcium 8.4 L (8.6-10.8) mg/dL Calcium panel 09/16/16 Range/Units 04:04 Calcium 8.4 L (8.6-10.8) mg/dL Pituitary panel 09/16/16 Range/Units 04:04 Sodium 139 (136-145) mEq/L Potassium 3.7 (3.5-4.5) mEq/L Chloride 109 (98-109) mEq/L Carbon Dioxide 18 L (19-29) mEq/L BUN 15 (8-26) mg/dL Creatinine 0.67 L (0.72-1.25) mg/dL Glucose 140 H (70-99) mg/dL Calcium 8.4 L (8.6-10.8) mg/dL Adrenal panel 09/16/16 Range/Units 04:04 Sodium 139 (136-145) mEq/L Potassium 3.7 (3.5-4.5) mEq/L Chloride 109 (98-109) mEq/L Carbon Dioxide 18 L (19-29) mEq/L BUN 15 (8-26) mg/dL Creatinine 0.67 L (0.72-1.25) mg/dL Glucose 140 H (70-99) mg/dL Calcium 8.4 L (8.6-10.8) mg/dL - VTE Documentation of Mechanical Device: Intermittent pneumatic compression device Consult Discharge Plan - Plan Referrals: Isa Hickman DO [Primary Care Provider] - 09/23/16 9:00 am <Davey Diaz - Last Filed: 09/16/16 18:28> Date of Encounter: 09/16/16 Objective Vital Signs - Last 8 Hours Temp Pulse Resp BP Pulse Ox 09/16/16 15:28 97.8 F 81 18 142/64 99 Intake and Output 09/16/16 09/16/16 09/16/16 07:59 15:59 23:59 Intake Total 1000 / 1000 1000 / 1000 360 / 360 Output Total 380 / 380 530 / 530 Balance 620 / 620 470 / 470 360 / 360 Intake: IV Fluids 1000 / 1000 1000 / 1000 0.9 % Sodium Chloride 1, 1000 / 1000 1000 / 1000 000 ML @ 75 mls/hr IVC . [id number] [facility] Rx#: [id number] Oral 360 / 360 Output: Urine 380 / 380 530 / 530 Other: Meal Dinner Weight 58.4 kg Blood Glucose* 142 177 188 Patient Weight 09/16/16 23:59 Weight 58.4 kg - Labs 09/16/16 04:04 09/16/16 04:04 Diabetes panel 09/16/16 Range/Units 04:04 Sodium 139 (136-145) mEq/L Potassium 3.7 (3.5-4.5) mEq/L Chloride 109 (98-109) mEq/L Carbon Dioxide 18 L (19-29) mEq/L BUN 15 (8-26) mg/dL Creatinine 0.67 L (0.72-1.25) mg/dL Glucose 140 H (70-99) mg/dL Calcium 8.4 L (8.6-10.8) mg/dL Calcium panel 09/16/16 Range/Units 04:04 Calcium 8.4 L (8.6-10.8) mg/dL Pituitary panel 09/16/16 Range/Units 04:04 Sodium 139 (136-145) mEq/L Potassium 3.7 (3.5-4.5) mEq/L Chloride 109 (98-109) mEq/L Carbon Dioxide 18 L (19-29) mEq/L BUN 15 (8-26) mg/dL Creatinine 0.67 L (0.72-1.25) mg/dL Glucose 140 H (70-99) mg/dL Calcium 8.4 L (8.6-10.8) mg/dL Adrenal panel 09/16/16 Range/Units 04:04 Sodium 139 (136-145) mEq/L Potassium 3.7 (3.5-4.5) mEq/L Chloride 109 (98-109) mEq/L Carbon Dioxide 18 L (19-29) mEq/L BUN 15 (8-26) mg/dL Creatinine 0.67 L (0.72-1.25) mg/dL Glucose 140 H (70-99) mg/dL Calcium 8.4 L (8.6-10.8) mg/dL - Attending Attestation I examined this patient and my medical decision-making was reviewed with the TOWN CLERK/PA/Advanced Practice Nurse/Resident Physician. I agree with the documented findings, disposition and treatment plan as described except to the extent set forth below. The patient is seen and evaluated with rest in the morning rounds. He has excellent pulses in his feet. There is no leg numbness. He is doing well and we will advance him to clear liquids. Davey Diaz MD FACS
--- NOTE | 2016-09-16 12:22 | Internal Med Progress Note ---
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 Diaz on 09/13/2016 Management per vascular surgery Continue IV fluids Advanced diet to clear liquids per surgery Continue aspirin and Lipitor CT scan showed complete occlusion of the right common iliac artery near the junction with the common femoral artery, focal high-grade greater than 75% stenosis of the origin of the left external iliac artery. Bilateral below the knee vessels are grossly patent. (2) Arterial insufficiency Current Visit: Yes Status: Chronic Assessment and plan: As stated above (3) Coronary artery disease Current Visit: Yes Status: Chronic Assessment and plan: Continue Lipitor Qualifiers: Coronary Disease-Associated Artery/Lesion type: [place] artery [place] vs. transplanted heart: [place] heart Associated angina: without angina Qualified Code(s): I25.10 - Atherosclerotic heart disease of [place] coronary artery without angina pectoris (4) Peripheral vascular disease Current Visit: Yes Status: Chronic (5) Tobacco abuse Current Visit: Yes Status: Chronic Assessment and plan: Smoking cessation counseling given for 5 minutes. Continue nicotine patch (6) Type 2 diabetes mellitus Current Visit: Yes Status: Acute Assessment and plan: Continue insulin sliding scale Qualifiers: Diabetes mellitus complication status: with circulatory complication Diabetes mellitus complication detail: with peripheral angiopathy without gangrene Diabetes mellitus long term care phlebotomist insulin use: without long term care phlebotomist use Qualified Code(s): E11.51 - Type 2 diabetes mellitus with diabetic peripheral angiopathy without gangrene - Subjective Interval history: Has mild pain over the abdominal area(surgical area, 2). Passing gas now. Denies any numbness of the right foot, denies any pain, no dysuria, no diarrhea , no chest pain or shortness of breath - Constitutional Vitals: Temp Pulse Resp BP Pulse Ox 98.2 F 73 20 142/72 98 09/16/16 05:38 09/16/16 10:20 09/16/16 10:20 09/16/16 10:20 09/16/16 10:20 General appearance: Present: A&O X 3, no acute distress, answers questions appropriately Exam: Head Head exam: Present: atraumatic, normocephalic - Eye Eye exam: Present: PERRL, conjuntiva pink, sclera anicteric Pupils: Present: PERRL - Neck Neck exam general surgery: Present: supple, trachea midline. Absent: lymphadenopathy - Respiratory Respiratory exam: Present: CTAB. Absent: accessory muscle use, rales, rhonchi, wheezes - Cardiovascular Cardiovascular exam: Present: RRR, +S1, +S2. Absent: diastolic murmur, gallop, rubs, systolic murmur - GI/Abdominal GI/Abdominal exam: Present: normal bowel sounds, soft, no peritoneal signs. Absent: distended, tenderness Additional comments: Large surgical wound covered by dressing lower abdomen, no hematomas - Extremities Exam Extremities exam: Present: warm, radial pulses palpable and symetrical. Absent : calf tenderness, cyanotic, pedal edema - Neurological Exam Neurological exam: Present: CN II-XII intact, oriented X3, no focal deficits. Absent: pronater drift, facial droop, speech deficit - Skin Skin exam: Present: dry, intact Internal Medicine: Result - Labs CBC & Chem 7: 09/16/16 04:04 09/16/16 04:04 Labs: Short CBC 09/16/16 Range/Units 04:04 WBC 8.0 (4.3-11.1) K/mcL Hgb 11.9 L (12.9-16.9) g/dL Hct 34.3 L (37.5-50.1) % Plt Count 146 (140-400) K/mcL [facility] 09/16/16 04:04 Sodium 139 Potassium 3.7 Chloride 109 Carbon Dioxide 18 L BUN 15 Creatinine 0.67 L Glucose 140 H Calcium 8.4 L - Impressions Impressions Aorta w/Runoff CTA 09/12/16 15:54 IMPRESSION: 1. Redemonstration of complete occlusion of the right common iliac artery beginning at the origin with reconstitution of flow in the distal aspect of the right external iliac artery near the junction with the common femoral artery. Previously, there was reconstitution of flow within the proximal portion of the right external iliac artery. 2. Stable focal high-grade, greater than 75%, stenosis of the origin of the left external iliac artery. 3. Bilateral ulxhy-aid-sbry runoff vessels are grossly patent, though the distal aspects of the right peroneal artery are not well visualized. D/ / 09/12/2016 22:20:22 Leandro Marmolejo MD / Trena Beltrán Interpreting Provider: Leandro Marmolejo MD - VTE Documentation of Mechanical Device: Intermittent pneumatic compression device Consult Discharge Plan - Plan Referrals: Isa Hickman DO [Primary Care Provider] - 09/23/16 9:00 am
[2016-09-16] MEDS ORDERED: Acetaminophen 325 MG TABLET PO PRN (14:00)
[2016-09-16] MEDS ORDERED: *HR* OxyCODONE/APAP 5/325 TABLET PO PRN (14:00)
[2016-09-16] MEDS ORDERED: *HR* HYDROmorphone (PF) 1 MG/ML SYRINGE IVP PRN (14:00)
[2016-09-17] MEDS: 0.9 % Sodium Chloride 1,000 ML IVC SCH (00:43)
[2016-09-17] MEDS: Insulin LISPRO 300 UNITS/3 ML VIAL SQ SCH ×2 (00:44→06:26)
[2016-09-17] MEDS: *HR* Metoprolol 5 MG/5 ML VIAL IVP SCH ×2 (00:44→06:31)
[2016-09-17 04:57] LABS: Hematocrit 31.2 % (37.5-50.1); Hemoglobin 11.2 g/dL (12.9-16.9); Mean Corpuscular HGB Conc 35.9 g/dL (31.6-35.5); Mean Corpuscular Hemoglobin 31.5 pg (28.0-33.3); Mean Corpuscular Volume 87.9 fL (83.0-100.0); Mean Platelet Volume 10.3 fL (9.4-12.4); Platelet Count 160 K/mcL (140-400); Red Blood Count 3.55 M/mcL (4.19-5.50); Red Cell Distribution Width 12.2 % (11.5-14.5)
[2016-09-17 05:14] LABS: BUN/Creatinine Ratio 19 (6-26); Blood Urea Nitrogen 11 mg/dL (8-26); Calcium 7.9 mg/dL (8.6-10.8); Carbon Dioxide 24 mEq/L (19-29); Chloride 111 mEq/L (98-109); Glucose 110 mg/dL (70-99); Osmolality,Calculated 288 (280-300); Sodium 139 mEq/L (136-145); eGFR For African Americans > 60 (> 60); eGFR For Non-African Americans > 60 (> 60)
[2016-09-17] MEDS: *HR* Heparin 5,000 UNIT/ML VIAL SQ SCH (06:31)
[2016-09-17] MEDS: Aspirin Enteric Coated 81 MG Tablet PO SCH (07:39)
[2016-09-17] MEDS: Nicotine 21 MG PATCH.TD24 TD SCH (07:39)
--- NOTE | 2016-09-17 09:05 | Discharge Summary ---
Date of Encounter: 09/17/16 Time of Encounter: 09:02 - Discharge Diagnosis (1) Arterial occlusion Priority: Primary Status: Acute (2) Peripheral vascular disease Priority: Primary Status: Chronic (3) Arterial insufficiency Priority: Primary Status: Chronic (4) Type 2 diabetes mellitus Priority: Secondary Status: Chronic Qualifiers: Diabetes mellitus complication status: with circulatory complication Diabetes mellitus complication detail: with peripheral angiopathy without gangrene Diabetes mellitus longterm insulin use: without director long term care use Qualified Code(s): E11.51 - Type 2 diabetes mellitus with diabetic peripheral angiopathy without gangrene (5) Coronary artery disease Priority: Secondary Status: Chronic Qualifiers: Coronary Disease-Associated Artery/Lesion type: [place] artery [place] vs. transplanted heart: [place] heart Associated angina: without angina Qualified Code(s): I25.10 - Atherosclerotic heart disease of [place] coronary artery without angina pectoris (6) Tobacco abuse Priority: Secondary Status: Chronic - Discharge Medications Prescriptions: Ondansetron ODT [Zofran ODT] 4 mg SL Q4HR PRN #30 tab.rapdis PRN Reason: Nausea OxyCODONE/APAP 10/325 [Percocet 10/325 MG] 1 each PO Q6HR PRN #30 tablet PRN Reason: Pain Aspirin Enteric Coated [Aspirin EC] 81 mg PO DAILY #30 tablet. Atorvastatin [Lipitor] 40 mg PO HS #30 tablet Docusate [Colace] 100 mg PO BID #60 capsule Nicotine Patch [Nicoderm] 21 mg TD DAILY #30 patch.td24 Home Medications: Aspirin Enteric Coated [Aspirin EC] 81 mg PO DAILY #30 tablet. 09/17/16 [Rx] Atorvastatin [Lipitor] 40 mg PO HS #30 tablet 09/17/16 [Rx] Docusate [Colace] 100 mg PO BID #60 capsule 09/17/16 [Rx] Nicotine Patch [Nicoderm] 21 mg TD DAILY #30 patch.td24 09/17/16 [Rx] Ondansetron ODT [Zofran ODT] 4 mg SL Q4HR PRN #30 tab.rapdis 09/17/16 [Rx] OxyCODONE/APAP 10/325 [Percocet 10/325 MG] 1 each PO Q6HR PRN #30 tablet [Rx] Allergies/Adverse Reactions: Allergies No Known Allergies Allergy (Verified 06/03/16 10:49) Date of admission: 09/12/16 10:40 Primary care physician: Isa Hickman Consults: 09/12/16 12:24 Consult to Nutrition [CONS] Routine Comment: Consulting Provider: NUTRITION Reason for Dietary Consult: Diet Education 09/14/16 10:32 Consult to Occupational Therapy [CONS] Routine Comment: Evaluate, develop and implement POC Reason for Consult: DC PLANNING 09/14/16 15:11 Consult to Physical Therapy [CONS] Routine Comment: Evaluate, develop and implement POC Reason for Consult: s/p aortobifemoral bypass - Patient Status Disposition: Home, Self-Care Condition: Good Functional capacity at discharge: uses cane/walker Overall status at discharge: patient is progressing back to baseline - Discharge Instructions Instructions: Oxycodone/Acetaminophen (By mouth), Aspirin (By mouth), Laxative , Stool Softeners (By mouth), Nicotine (Absorbed through the skin), Ondansetron (By mouth), How to Stop Smoking (DC), Diabetes Mellitus Type 2 in Adults (DC), Peripheral Vascular Disorders (DC), Surgical Site Infections (GEN) Follow Up With: Davey Diaz MD [Partnered Physician] - (10/08/2016 at 9:45 am) Isa Hickman DO [Primary Care Provider] - 09/23/16 9:00 am Additional Instructions: Follow-up appointments: Follow-up with Dr. Diaz on October 08, 2016 at 9:45 am Medication List: Carry an up to date list of medications you are taking at all time. We have given you an updated medication list including any new medications that you have been prescribed. Please provide that list to your primary provider. Please call Dr. Diaz's office if you have any difficulties with your medications or if discomfort is not controlled. Symptoms: If your condition changes or you experience any of the following symptoms, notify your physician immediately: Unusual or worsening pain, fever, persistent nausea and vomiting, bleeding, increase in swelling (especially in your legs), sudden weight gain, extreme dizziness, chest pain, increased drainage or redness from a wound or incision. Go to the emergency department if you experience a problem with breathing. Activity: No pushing, pulling, or lifting anything greater than 10 lbs for 6 weeks. You may climb stairs and walk as tolerated. Do not run or engage in physical strenuous activities. You may shower, but do not swim or soak in a tub until cleared by your surgeon. Do not drive a vehicle or operate heavy machinery while on narcotics. Do not drive until you are seen in follow-up. Diet: Continue your usual diet as tolerated Weights: If you have a history of swelling or shortness of breath, weigh yourself daily and notify your physician if you have a weight gain of two or more pounds in one day or 5 or more pounds in a week. If you experience any of the warning signs for stroke: Sudden numbness or weakness of the face, arm or leg; especially on one side of the body, sudden confusion, trouble speaking or understanding, sudden trouble seeing in one or both eyes, sudden trouble walking, dizziness, loss of balance or coordination, sudden sever headache with no cause; Call 911 or go to the emergency room. Stroke is a medical emergency. Some risk factors for stroke: Age, cigarette smoking, diabetes, excessive alcohol consumption, family history , high blood pressure, overweight, physical inactivity, prior stroke, heart attack, diagnosis of carotid artery stenosis or other artery disease. If you smoke, STOP: Smoking or tobacco use significantly increases your risk of heart and lung disease. Your chance of disease greatly increases if you continue to smoke. For more information, call the [employer] tobacco quit line for smoking cessation QUIT-NOW ( ) - Diet and Activity Activity: resume usual activities as tolerated Diet: diabetic diet, low fat, low cholesterol, low salt diet Interval History: Patient has no complaints. He is eager to go home. Hospital course: Mr. Leblanc is a 60 year old male with past medical history of diabetes, E, and heavy tobacco use who presented with the chief complaint of right foot numbness. Patient was diagnosed with artery occlusive disease and underwent aorto bifemoral bypass without complications. Patient was encouraged to stop smoking. He was discharged on aspirin, starting a nicotine patch as well as pain control medications. 1: Follow-up with Dr. Peñaloza in 1 week. - Time Spent with Patient Total time spent providing and/or coordinating discharge services: - Constitutional Vitals: Temp Pulse Resp BP Pulse Ox 98.0 F 74 18 132/63 95 09/17/16 07:06 09/17/16 07:06 09/17/16 07:06 09/17/16 07:06 09/17/16 07:06 General appearance: Present: cooperative, A&O X 3, pleasant, no acute distress, answers questions appropriately - Eye Eye exam: Present: PERRL, sclera anicteric - Neck Neck exam general surgery: Present: supple, trachea midline. Absent: lymphadenopathy - Respiratory Respiratory exam: Present: CTAB - Cardiovascular Cardiovascular exam: Present: RRR - GI/Abdominal GI/Abdominal exam: Present: normal bowel sounds, soft, tenderness (mild tenderness. midline surgical wound is clean.). Absent: distended - Extremities Exam Extremities exam: Absent: pedal edema - Back Exam Back exam: Absent: CVA tenderness (L), CVA tenderness (R) - Neurological Exam Neurological exam: Present: alert, oriented X3, no focal deficits, strengths equal and symetr throughout. Absent: facial droop, speech deficit - VTE Documentation of Mechanical Device: Intermittent pneumatic compression device
[2016-09-17] MEDS ORDERED: Magnesium Sulfate 1 GM in D5% in Water 100 ML IVPB ONE (09:08)
[2016-09-17] MEDS ORDERED: Insulin LISPRO 300 UNITS/3 ML VIAL SQ SCH ×2 (11:30→21:00)
--- NOTE | 2016-09-17 11:34 | Vascular/[facility]as Progress Note ---
Date of Encounter: 09/17/16 Time of Encounter: 10:45 - Assessment and plan (1) Arterial insufficiency Status: Chronic Postop day #4 Aortobifemoral bypass. States discomfort is controlled no signs or symptoms of infection, incisional sites are clean, dry, and intact. He will be discharged charged per the hospitalist. He has been given prescriptions for discomfort management, anti-Imitrex, and stool softener's. He has been given a follow-up appointment with Dr. Diaz. (2) Tobacco abuse Status: Chronic The patient is strongly encouraged to stop smoking. Smoking cessation has been given and he will be discharged on a nicotine patch. The patient was seen and evaluated and discussed with the clinical nurse practitioner. He is ready for discharge. Davey Diaz MD FACS - Subjective Procedure(s) Performed: Mr. Leblanc is resting in bed. His is at bedside. He denies drainage from the surgical sites. He states his discomfort is controlled on the current regimen. He is ambulating without difficulty, tolerating his diet, and voiding without difficulty. - Physical Examination General: Present: Conversant, No Apparent Distress, Well nourished HEENT: Present: Atraumatic, Normocephaly, Trachea midline Cardiac: Present: Reg Rate and Rhythm Lungs: Present: Normal Breath Sounds Neuro: Present: Alert and responsive Vascular: Present: Normal capillary refill, Pulse, normal (Distal pedal pulses are intact.), Surgical incisions (Midline and bilateral femoral surgical incisions within normal limits) Abdomen: Present: Soft, Non-tender Skin: Present: Wound/ulcer(s) (Surgical incision midline as well as bilateral for moral access is clean, dry, intact, and free from signs or symptoms of infection.) Musculoskeletal: Present: No Chest Wall Tenderness - VTE Documentation of Mechanical Device: Intermittent pneumatic compression device Results 09/17/16 04:38 09/17/16 11:14 Lab Results, Last 24 hours 09/17/16 09/17/16 04:38 04:38 WBC 6.5 Hgb 11.2 L Hct 31.2 L Plt Count 160 Sodium 139 Potassium 3.0 L Chloride 111 H Carbon Dioxide 24 BUN 11 Creatinine 0.57 L Glucose 110 H Calcium 7.9 L Consult Discharge Plan - Plan Instructions: Oxycodone/Acetaminophen (By mouth), Aspirin (By mouth), Laxative , Stool Softeners (By mouth), Nicotine (Absorbed through the skin), Ondansetron (By mouth), How to Stop Smoking (DC), Diabetes Mellitus Type 2 in Adults (DC), Peripheral Vascular Disorders (DC), Surgical Site Infections (GEN) Additional Instructions: Follow-up appointments: Follow-up with Dr. Diaz on October 08, 2016 at 9:45 am Medication List: Carry an up to date list of medications you are taking at all time. We have given you an updated medication list including any new medications that you have been prescribed. Please provide that list to your primary provider. Please call Dr. Diaz's office if you have any difficulties with your medications or if discomfort is not controlled. Symptoms: If your condition changes or you experience any of the following symptoms, notify your physician immediately: Unusual or worsening pain, fever, persistent nausea and vomiting, bleeding, increase in swelling (especially in your legs), sudden weight gain, extreme dizziness, chest pain, increased drainage or redness from a wound or incision. Go to the emergency department if you experience a problem with breathing. Activity: No pushing, pulling, or lifting anything greater than 10 lbs for 6 weeks. You may climb stairs and walk as tolerated. Do not run or engage in physical strenuous activities. You may shower, but do not swim or soak in a tub until cleared by your surgeon. Do not drive a vehicle or operate heavy machinery while on narcotics. Do not drive until you are seen in follow-up. Diet: Continue your usual diet as tolerated Weights: If you have a history of swelling or shortness of breath, weigh yourself daily and notify your physician if you have a weight gain of two or more pounds in one day or 5 or more pounds in a week. If you experience any of the warning signs for stroke: Sudden numbness or weakness of the face, arm or leg; especially on one side of the body, sudden confusion, trouble speaking or understanding, sudden trouble seeing in one or both eyes, sudden trouble walking, dizziness, loss of balance or coordination, sudden sever headache with no cause; Call 911 or go to the emergency room. Stroke is a medical emergency. Some risk factors for stroke: Age, cigarette smoking, diabetes, excessive alcohol consumption, family history , high blood pressure, overweight, physical inactivity, prior stroke, heart attack, diagnosis of carotid artery stenosis or other artery disease. If you smoke, STOP: Smoking or tobacco use significantly increases your risk of heart and lung disease. Your chance of disease greatly increases if you continue to smoke. For more information, call the [place] tobacco quit line for smoking cessation 2- QUIT-NOW ( ) Referrals: Isa Hickman DO [Primary Care Provider] - 09/23/16 9:00 am Davey Diaz MD [Partnered Physician] - (10/08/2016 at 9:45 am) Prescriptions: Ondansetron ODT [Zofran ODT] 4 mg SL Q4HR PRN #30 tab.rapdis PRN Reason: Nausea OxyCODONE/APAP 10/325 [Percocet 10/325 MG] 1 each PO Q6HR PRN #30 tablet PRN Reason: Pain Aspirin Enteric Coated [Aspirin EC] 81 mg PO DAILY #30 tablet. Atorvastatin [Lipitor] 40 mg PO HS #30 tablet Docusate [Colace] 100 mg PO BID #60 capsule Nicotine Patch [Nicoderm] 21 mg TD DAILY #30 patch.td24
[2016-09-17 11:53] VITALS: BP 141/65
== END 2016-09-17 12:50 | disposition home or self-care (01) | DRG 272 ==
LOC: EMEROO 10:02 → 3ANU 10:02 → SUATTDRO 10:40 → 3ANU 11:08 → 2NNU 09-13 16:54
PROVIDERS: ADMIT Family Medicine; ATTEND Internal Medicine